=== PATIENT | male | born 1980 | race Caucasian/White ===

== ENCOUNTER 2017-05-03 07:16 | Emergency (ER) | payer OTHER ==
[~2017-05-03] VITALS: Ht 177.8 cm; Wt 107.8 kg
[2017-05-03 11:30] VITALS: BP 113/68
== END 2017-05-03 12:39 | disposition short-term general hospital (02) ==
LOC: EME 07:16
PROC: 3E0234Z Introduction of Serum, Toxoid and Vaccine into Muscle, Percutaneous Approach (ICD-10-PCS; principal; 2017-05-03)
DX: S61.207A Unspecified open wound of left little finger without damage to nail, initial encounter (principal); Z23 Encounter for immunization; W31.89XA Contact with other specified machinery, initial encounter; Y99.0 Civilian activity done for income or pay; Z87.891 Personal history of nicotine dependence
CPT/HCPCS: 73140; 99281; 99284; J0696; J1170; J1885; J2270